=== PATIENT | male | born 1950 | race Two or more races ===

== ENCOUNTER 2020-05-27 10:49 | Emergency (ER) | payer MEDICARE, OTHER ==
[~2020-05-27] VITALS: Ht 167.6 cm; Wt 82.0 kg
[2020-05-27] MEDS ORDERED: [UNRECOGNIZED DRUG - CODE] PO (10:57)
[2020-05-27] MEDS ORDERED: MONT-35 PO (10:57)
[2020-05-27] MEDS ORDERED: [UNRECOGNIZED DRUG - REMARK] PO (10:57)
[2020-05-27] MEDS ORDERED: MORPHINE SULFATE 4 MG/ML SYRINGE IVP ONE (12:00)
[2020-05-27] MEDS ORDERED: SODIUM CHLORIDE 0.9% 1,000 ML IV ONE (12:00)
[2020-05-27] MEDS ORDERED: ONDANSETRON HCL 4 MG/2 ML VIAL IVP ONE (12:00)
[2020-05-27 12:23] LABS: BASOPHILS % (AUTO) 0.4 % (0.0-2.0); EOSINOPHILS % (AUTO) 5.5 % (1.0-6.0); HEMATOCRIT 42.7 % (41-53); HEMOGLOBIN 14.3 g/dL (13.5-17.5); LYMPHOCYTES # (AUTO) 3.4 K/uL (1.0-4.8); LYMPHOCYTES % (AUTO) 37.1 % (22.0-44.0); MEAN CORPUSCULAR HEMOGLOBIN 29.7 pg (26.0-34.0); MEAN CORPUSCULAR HGB CONC 33.5 G/dL (31.0-37.0); MEAN CORPUSCULAR VOLUME 89 fL (80-100); MONOCYTES # (AUTO) 0.7 K/uL (0.1-1.0); MONOCYTES % (AUTO) 7.7 % (2.0-9.0); NEUTROPHILS # (AUTO) 4.5 K/uL (1.8-7.7); NEUTROPHILS % (AUTO) 49.3 % (40.0-70.0); PLATELET COUNT (AUTO) 154 K/uL (150-450); RED BLOOD CELL COUNT(AUTO) 4.82 MIL/uL (4.50-5.90); RED CELL DISTRIBUTION WIDTH 13.6 % (11.5-14.5)
[2020-05-27 12:33] LABS: ANION GAP 3 mmol/L (8-16); CALCIUM, TOTAL 9.2 mg/dL (8.8-10.5); CARBON DIOXIDE 32 mmol/L (22-29); CHLORIDE 101 mmol/L (98-107); CREATININE 0.93 mg/dL (0.60-1.30); GLOMERULAR FILTR. RATE CALC > 60 mL/min (>60); GLUCOSE,RANDOM 97 mg/dL (70-110); POTASSIUM 4.3 mmol/L (3.5-5.1); SODIUM SERUM 136 mmol/L (136-145); UREA NITROGEN, BLOOD 14 mg/dL (7-18)
[2020-05-27 12:43] LABS: ALANINE AMINOTRANSFERASE 21 U/L (12-78); ALBUMIN 3.8 g/dL (3.4-5.0); ALKALINE PHOSPHATASE 63 U/L (46-116); ASPARTATE AMINOTRANSFERASE 13 U/L (15-37); BILIRUBIN,TOTAL 0.5 mg/dL (0.1-1.0); LIPASE 164 U/L (73-393)
[2020-05-27] MEDS ORDERED: SODIUM CHLORIDE 0.9% 100 ML ONE (13:23)
[2020-05-27] MEDS ORDERED: IOVERSOL 320 MG/ML 100 ML VIAL ONE (13:23)
[2020-05-27 14:03] VITALS: BP 139/79
== END 2020-05-27 15:37 | disposition home or self-care (01) ==
LOC: EMS 10:58
DX: R10.31 Right lower quadrant pain (principal); J45.909 Unspecified asthma, uncomplicated
CPT/HCPCS: 36415; 74177; 80053; 83690; 85025; 96361; 96374; 96375; 99285; J2270; J2405; J7030; J7050; Q9967

== ENCOUNTER 2022-05-03 09:52 | Inpatient (IN) | payer MEDICARE, OTHER ==
[~2022-05-03] VITALS: Ht 167.6 cm; Wt 87.2 kg
[~2022-05-03 09:52] MED LIST: MONT-35 PO; [UNRECOGNIZED DRUG - CODE] PO
[2022-05-03] MEDS ORDERED: 0.9% SODIUM CHLORIDE 10 ML SYRINGE IVP PRN (10:00)
[2022-05-03] MEDS ORDERED: ACETAMINOPHEN 1000 MG/ISO-OSM 100 ML IV ONE (10:00)
[2022-05-03 10:34] LABS: BASOPHILS % (AUTO) 0.1 % (0.0-2.0); EOSINOPHILS % (AUTO) 0.8 % (1.0-6.0); HEMATOCRIT 41.6 % (41-53); HEMOGLOBIN 13.7 g/dL (13.5-17.5); LYMPHOCYTES # (AUTO) 0.9 K/uL (1.0-4.8); LYMPHOCYTES % (AUTO) 6.1 % (22.0-44.0); MEAN CORPUSCULAR HEMOGLOBIN 28.7 pg (26.0-34.0); MEAN CORPUSCULAR HGB CONC 33.1 G/dL (31.0-37.0); MEAN CORPUSCULAR VOLUME 87 fL (80-100); MONOCYTES # (AUTO) 0.3 K/uL (0.1-1.0); MONOCYTES % (AUTO) 1.9 % (2.0-9.0); PLATELET COUNT (AUTO) 148 K/uL (150-450); RED BLOOD CELL COUNT(AUTO) 4.78 MIL/uL (4.50-5.90); RED CELL DISTRIBUTION WIDTH 13.8 % (11.5-14.5)
[2022-05-03 10:36] LABS: COVID AG,FIA SOURCE NASAL SWAB
[2022-05-03 10:45] LABS: ANION GAP 7 mmol/L (8-16); CALCIUM, TOTAL 8.7 mg/dL (8.8-10.5); CARBON DIOXIDE 26 mmol/L (22-29); CHLORIDE 101 mmol/L (98-107); CREATININE 0.97 mg/dL (0.60-1.30); GLUCOSE,RANDOM 117 mg/dL (70-110); POTASSIUM 3.7 mmol/L (3.5-5.1); SODIUM SERUM 134 mmol/L (136-145); UREA NITROGEN, BLOOD 15 mg/dL (7-18)
[2022-05-03] MEDS ORDERED: SODIUM CHLORIDE 0.9% 2,750 ML IV ONE (10:45)
[2022-05-03 10:48] LABS: D-DIMER 1.82 mg/L FEU (0.00-0.50); INR 1.1 (0.9-1.1); PROTHROMBIN TIME 11.8 SEC (9.4-11.6)
[2022-05-03 10:50] LABS: GLOMERULAR FILTR. RATE CALC > 60 mL/min (>60)
[2022-05-03 10:51] LABS: ALANINE AMINOTRANSFERASE 22 U/L (12-78); ALBUMIN 3.6 g/dL (3.4-5.0); ALKALINE PHOSPHATASE 66 U/L (46-116); ASPARTATE AMINOTRANSFERASE 15 U/L (15-37); BILIRUBIN,TOTAL 0.5 mg/dL (0.1-1.0); CREATINE KINASE, TOTAL ONLY 21 U/L (39-308); TOTAL PROTEIN, SERUM 6.5 g/dL (6.4-8.2)
[2022-05-03 10:52] LABS: B-TYPE NATRIURETIC PEPTIDE < 5 pg/mL (0-100)
[2022-05-03 10:55] LABS: LACTIC ACID 3.6 mmol/L (0.4-2.0)
[2022-05-03] MEDS ORDERED: AZITHROMYCIN 500 MG/NS 250 ML IV ONE (11:00)
[2022-05-03] MEDS ORDERED: CefTRIAXone 1 GM/DEXTROSE 50 ML IV ONE (11:00)
[2022-05-03 11:01] LABS: NEUTROPHILS % (AUTO) 91.1 % (40.0-70.0)
[2022-05-03 11:04] LABS: INFLUENZA TYPE A NEGATIVE FOR TYPE A (NEGATIVE); INFLUENZA TYPE B NEGATIVE FOR TYPE B (NEGATIVE)
[2022-05-03] MEDS ORDERED: IPRATROPIUM BROMIDE 0.5 MG/2.5 ML NEB SOLUTION NEB ONE (11:15)
[2022-05-03] MEDS ORDERED: ALBUTEROL SULFATE 5 MG/ML 20 ML NEB SOLN [BULK] NEB ONE (11:15)
[2022-05-03 11:32] LABS: ABG BASE EXCESS 1.7 mmol/L (-2.0-3.0); ABG CARBOXYHEMOGLOBIN 2.7 % (0.0-1.5); ABG HCO3 25.8 mmol/L (22.0-26.0); ABG METHEMOGLOBIN 0.1 % (0.0-1.5); ABG OXYGEN CONTENT 18.1 mL/dL (15.0-23.0); ABG OXYGEN SATURATION 97.9 % (95.0-98.0); ABG OXYHEMOGLOBIN 95.2 % (94.0-100.0); ABG PCO2 46 mmHg (35-45); ABG PH 7.384 (7.35-7.450); ABG TOTAL HEMOGLOBIN 13.4 G/dL (12.0-18.0); PO2, ARTERIAL BG 116.9 mmHg (75.0-83.0); SITE, BLOOD GAS LFT BRACHIAL; SOURCE, BLOOD GAS ARTERIAL
[2022-05-03 11:33] LABS: O2 DEVICE,BLOOD GAS NC (ROOM AIR)
[2022-05-03 12:30] LABS: APPEARANCE,URINE CLEAR (CLEAR); BILIRUBIN,URINE NEGATIVE (NEGATIVE); GLUCOSE, URINE (UA) NEGATIVE (NEGATIVE); KETONES,URINE NEGATIVE (NEGATIVE); LEUKOCYTE ESTERASE ,URINE NEGATIVE (NEGATIVE); NITRATE,URINE NEGATIVE (NEGATIVE); OCCULT BLOOD,URINE NEGATIVE (NEGATIVE); PROTEIN,URINE NEGATIVE (NEGATIVE); SPECIFIC GRAVITIY, URINE 1.006 (1.003-1.030); UROBILINOGEN,URINE <=1.0 mg/dL (<=1.0)
[2022-05-03] MEDS ORDERED: SODIUM CHLORIDE 0.9% 1,000 ML IV ONE (13:15)
[2022-05-03] MEDS ORDERED: OxyCODONE HCL/ACETAMINOPHEN 5-325 MG TABLET PO PRN (13:15)
[2022-05-03] MEDS ORDERED: HYDROCORTISONE 2.5% 30 GM CREAM TP PRN (13:15)
[2022-05-03] MEDS ORDERED: ACETAMINOPHEN 325 MG TABLET PO PRN (13:15)
[2022-05-03] MEDS ORDERED: ZOLPIDEM TARTRATE 5 MG TABLET PO PRN (13:15)
[2022-05-03] MEDS ORDERED: ONDANSETRON HCL 4 MG/2 ML VIAL IVP PRN (13:15)
[2022-05-03 14:37] VITALS: BP 101/52
[2022-05-03 16:11] VITALS: BP 105/68
[2022-05-03] MEDS: MethylPREDNISolone SOD SUCC 125 MG/2 ML VIAL IVP SCH ×2 (17:12→23:46)
[2022-05-03] MEDS: HEPARIN SODIUM,PORCINE 5,000 UNITS/ML VIAL SQ SCH ×2 (17:12→23:45)
[2022-05-03 18:01] LABS: GLUCOMETER DEV NAME(LOC) 5N.1C; GLUCOSE,POINT OF CARE 117 MG/DL (70-110)
[2022-05-03 20:45] VITALS: BP 111/72
[2022-05-03] MEDS: DOCUSATE SODIUM 100 MG CAPSULE PO SCH (21:07)
[2022-05-03] MEDS: ALBUTEROL SULFATE 2.5 MG/0.5 ML NEB SOLUTION NEB PRN (21:40)
[2022-05-04] VITALS (7 sets, daily range): BP systolic 108–144; BP diastolic 55–90
[2022-05-04] MEDS: HEPARIN SODIUM,PORCINE 5,000 UNITS/ML VIAL SQ SCH ×3 (08:00→23:33)
[2022-05-04] MEDS: MethylPREDNISolone SOD SUCC 125 MG/2 ML VIAL IVP SCH ×3 (08:29→23:33)
[2022-05-04] MEDS: FAMOTIDINE 20 MG TABLET PO SCH (08:30)
[2022-05-04] MEDS: DOCUSATE SODIUM 100 MG CAPSULE PO SCH ×3 (08:30→23:41)
[2022-05-04] MEDS ORDERED: 0.9% SODIUM CHLORIDE 5 ML NEB SOLUTION NEB ONE ×2 (09:51→23:48)
[2022-05-04] MEDS ORDERED: IOHEXOL 350 MG/ML 100 ML VIAL ONE (09:55)
[2022-05-04] MEDS ORDERED: SODIUM CHLORIDE 0.9% 100 ML ONE (09:55)
[2022-05-04] MEDS: ALBUTEROL SULFATE 2.5 MG/0.5 ML NEB SOLUTION NEB PRN ×2 (09:55→23:55)
[2022-05-04] MEDS ORDERED: SODIUM CHLORIDE 0.9% 1,000 ML IV ONE (10:00)
[2022-05-04] MEDS: AZITHROMYCIN 500 MG/NS 250 ML IV SCH (10:34)
[2022-05-04] MEDS: CefTRIAXone 1 GM/DEXTROSE 50 ML IV SCH (12:47)
[2022-05-05] MEDS: GuaiFENesin SR 600 MG ER TABLET PO SCH ×3 (00:04→20:52)
[2022-05-05 04:31] VITALS: BP 124/76
[2022-05-05 06:24] LABS: EOSINOPHILS % (AUTO) 0 % (1.0-6.0); HEMATOCRIT 37.6 % (41-53); HEMOGLOBIN 12.3 g/dL (13.5-17.5); LYMPHOCYTES # (AUTO) 1.6 K/uL (1.0-4.8); LYMPHOCYTES % (AUTO) 7.5 % (22.0-44.0); MEAN CORPUSCULAR HEMOGLOBIN 28.4 pg (26.0-34.0); MEAN CORPUSCULAR HGB CONC 32.8 G/dL (31.0-37.0); MEAN CORPUSCULAR VOLUME 87 fL (80-100); MONOCYTES # (AUTO) 0.7 K/uL (0.1-1.0); MONOCYTES % (AUTO) 3.5 % (2.0-9.0); NEUTROPHILS # (AUTO) 18.6 K/uL (1.8-7.7); PLATELET COUNT (AUTO) 153 K/uL (150-450); RED BLOOD CELL COUNT(AUTO) 4.33 MIL/uL (4.50-5.90); RED CELL DISTRIBUTION WIDTH 14.5 % (11.5-14.5)
[2022-05-05 06:51] LABS: ANION GAP 10 mmol/L (8-16); CALCIUM, TOTAL 8.8 mg/dL (8.8-10.5); CARBON DIOXIDE 25 mmol/L (22-29); CHLORIDE 106 mmol/L (98-107); CREATININE 0.76 mg/dL (0.60-1.30); GLUCOSE,RANDOM 157 mg/dL (70-110); POTASSIUM 3.9 mmol/L (3.5-5.1); SODIUM SERUM 141 mmol/L (136-145); UREA NITROGEN, BLOOD 16 mg/dL (7-18)
[2022-05-05 06:52] LABS: GLOMERULAR FILTR. RATE CALC > 60 mL/min (>60)
[2022-05-05 07:46] VITALS: BP 119/70
[2022-05-05] MEDS: MethylPREDNISolone SOD SUCC 125 MG/2 ML VIAL IVP SCH ×2 (08:19→16:25)
[2022-05-05] MEDS: HEPARIN SODIUM,PORCINE 5,000 UNITS/ML VIAL SQ SCH ×2 (08:19→16:25)
[2022-05-05] MEDS: DOCUSATE SODIUM 100 MG CAPSULE PO SCH ×2 (08:19→20:52)
[2022-05-05] MEDS: FAMOTIDINE 20 MG TABLET PO SCH (08:19)
[2022-05-05 11:02] VITALS: BP 123/69
[2022-05-05] MEDS ORDERED: SODIUM CHLORIDE 0.9% 500 ML IV ONE (12:35)
[2022-05-05] MEDS: CefTRIAXone 1 GM/DEXTROSE 50 ML IV SCH (12:38)
[2022-05-05] MEDS: AZITHROMYCIN 500 MG/NS 250 ML IV SCH (13:16)
[2022-05-05 15:03] VITALS: BP 140/79
[2022-05-05 19:30] VITALS: BP 133/79
[2022-05-05 23:35] VITALS: BP 128/76
[2022-05-06] MEDS: HEPARIN SODIUM,PORCINE 5,000 UNITS/ML VIAL SQ SCH ×3 (00:32→16:41)
[2022-05-06] MEDS: MethylPREDNISolone SOD SUCC 125 MG/2 ML VIAL IVP SCH ×2 (00:32→07:59)
[2022-05-06] MEDS ORDERED: 0.9% SODIUM CHLORIDE 5 ML NEB SOLUTION NEB ONE ×3 (00:52→15:43)
[2022-05-06] MEDS: ALBUTEROL SULFATE 2.5 MG/0.5 ML NEB SOLUTION NEB PRN ×3 (00:53→16:00)
[2022-05-06 04:49] VITALS: BP 129/72
[2022-05-06 07:15] VITALS: BP 143/86
[2022-05-06] MEDS: FAMOTIDINE 20 MG TABLET PO SCH (07:59)
[2022-05-06] MEDS: GuaiFENesin SR 600 MG ER TABLET PO SCH ×2 (07:59→20:41)
[2022-05-06] MEDS: DOCUSATE SODIUM 100 MG CAPSULE PO SCH ×2 (08:00→20:41)
[2022-05-06] MEDS: CefTRIAXone 1 GM/DEXTROSE 50 ML IV SCH (10:54)
[2022-05-06] MEDS: PredniSONE 20 MG TABLET PO SCH (10:55)
[2022-05-06 11:00] VITALS: BP 131/78
[2022-05-06] MEDS: AZITHROMYCIN 500 MG/NS 250 ML IV SCH (13:03)
[2022-05-06 15:18] VITALS: BP 146/92
[2022-05-06 15:53] LABS: ABG BASE EXCESS 3.5 mmol/L (-2.0-3.0); ABG CARBOXYHEMOGLOBIN 0.4 % (0.0-1.5); ABG HCO3 27.2 mmol/L (22.0-26.0); ABG METHEMOGLOBIN 0.2 % (0.0-1.5); ABG OXYGEN CONTENT 18.7 mL/dL (15.0-23.0); ABG OXYGEN SATURATION 94.4 % (95.0-98.0); ABG OXYHEMOGLOBIN 93.8 % (94.0-100.0); ABG PCO2 41 mmHg (35-45); ABG PH 7.441 (7.35-7.450); ABG TOTAL HEMOGLOBIN 14.2 G/dL (12.0-18.0); PO2, ARTERIAL BG 70.6 mmHg (75.0-83.0); SOURCE, BLOOD GAS ARTERIAL; TEMPERATURE, FAHRENHEIT, BG 98.4 FAHREN (96.0-98.6)
[2022-05-06 15:54] LABS: SITE, BLOOD GAS LFT RADIAL
[2022-05-06 15:55] LABS: ABG A-A DIFF O2 29.6 mmHg (10-20.0); O2 DEVICE,BLOOD GAS ROOM AIR (ROOM AIR)
[2022-05-06 19:57] VITALS: BP 138/75
[2022-05-06 23:45] VITALS: BP 137/85
[2022-05-06 23:47] LABS: GLUCOMETER DEV NAME(LOC) 5N.1C; GLUCOSE,POINT OF CARE 125 MG/DL (70-110)
[2022-05-07] MEDS: HEPARIN SODIUM,PORCINE 5,000 UNITS/ML VIAL SQ SCH ×4 (00:03→23:46)
[2022-05-07] MEDS ORDERED: 0.9% SODIUM CHLORIDE 5 ML NEB SOLUTION NEB ONE ×2 (00:07→12:21)
[2022-05-07 04:55] VITALS: BP 135/79
[2022-05-07 07:54] VITALS: BP 154/92
[2022-05-07] MEDS: FAMOTIDINE 20 MG TABLET PO SCH (08:58)
[2022-05-07] MEDS: DOCUSATE SODIUM 100 MG CAPSULE PO SCH ×2 (08:58→20:19)
[2022-05-07] MEDS: PredniSONE 20 MG TABLET PO SCH (08:58)
[2022-05-07] MEDS: GuaiFENesin SR 600 MG ER TABLET PO SCH ×2 (08:59→20:19)
[2022-05-07 12:10] VITALS: BP 122/85
[2022-05-07] MEDS: CefTRIAXone 1 GM/DEXTROSE 50 ML IV SCH (12:14)
[2022-05-07] MEDS: ALBUTEROL SULFATE 2.5 MG/0.5 ML NEB SOLUTION NEB PRN (12:23)
[2022-05-07 15:34] VITALS: BP 140/75
[2022-05-07] MEDS: AZITHROMYCIN 500 MG/NS 250 ML IV SCH (16:24)
[2022-05-07] MEDS ORDERED: CETIRIZINE HCL 10 MG TABLET PO PRN (17:45)
[2022-05-07 21:05] VITALS: BP 122/74
[2022-05-08 00:10] VITALS: BP 128/74
[2022-05-08 04:30] VITALS: BP 113/74
[2022-05-08 07:42] VITALS: BP 124/79
[2022-05-08] MEDS: DOCUSATE SODIUM 100 MG CAPSULE PO SCH (08:17)
[2022-05-08] MEDS: HEPARIN SODIUM,PORCINE 5,000 UNITS/ML VIAL SQ SCH ×2 (08:18→15:54)
[2022-05-08] MEDS: PredniSONE 20 MG TABLET PO SCH (08:18)
[2022-05-08] MEDS: GuaiFENesin SR 600 MG ER TABLET PO SCH (08:18)
[2022-05-08] MEDS: FAMOTIDINE 20 MG TABLET PO SCH (08:18)
[2022-05-08] MEDS ORDERED: FLUT1AER IH (09:38)
[2022-05-08] MEDS ORDERED: ALBU8HFA IH (09:38)
[2022-05-08] MEDS ORDERED: PRED-554 PO (09:38)
[2022-05-08] MEDS ORDERED: PRED-549 PO (09:38)
[2022-05-08 11:43] VITALS: BP 127/74
[2022-05-08] MEDS: AZITHROMYCIN 500 MG/NS 250 ML IV SCH (13:20)
[2022-05-08] MEDS: CefTRIAXone 1 GM/DEXTROSE 50 ML IV SCH (13:20)
== END 2022-05-08 16:00 | disposition home or self-care (01) | DRG 871 ==
LOC: EMS 09:52 → 5S 13:23
PROVIDERS: ADMIT Internal Medicine; ATTEND Internal Medicine
DX: A41.9 Sepsis, unspecified organism (principal); J96.01 Acute respiratory failure with hypoxia; J96.02 Acute respiratory failure with hypercapnia; E87.20 Acidosis, unspecified; J45.901 Unspecified asthma with (acute) exacerbation; J68.0 Bronchitis and pneumonitis due to chemicals, gases, fumes and vapors; F17.210 Nicotine dependence, cigarettes, uncomplicated; K64.4 Residual hemorrhoidal skin tags; Z20.822 Contact with and (suspected) exposure to COVID-19; R79.89 Other specified abnormal findings of blood chemistry; T65.891A Toxic effect of other specified substances, accidental (unintentional), initial encounter; Y92.89 Other specified places as the place of occurrence of the external cause; Z79.899 Other long term (current) drug therapy
CPT/HCPCS: 36600; 71045; 71250; 71275; 80048; 80053; 81003; 82550; 82805; 82962; 83605; 83880; 84145; 84484; 85025; 85379; 85610; 85730; 87040; 87804; 93005; 94640; 94644; 99285; J0131; J0456; J0696; J1644; J2930; J7030; J7040; J7050; Q9967; 36415-L1; 36415-TC; J7613

== ENCOUNTER 2025-06-05 23:54 | Emergency (ER) | payer MEDICARE, MEDICAID ==
[~2025-06-05] VITALS: Ht 170.2 cm; Wt 72.0 kg
[2025-06-05 00:02] VITALS: PULSE 81; RESP 29; O2SAT 100
[~2025-06-05 23:54] MED LIST changes: +ALBU18HF12 IH; +FLUT1AER IH; +PRED-549 PO; +PRED-554 PO
[2025-06-05 23:55] VITALS: PULSE 88; RESP 32; O2SAT 100
[2025-06-05 23:59] VITALS: TEMP 99
[2025-06-06 00:02] VITALS: PULSE 81; RESP 29; O2SAT 100
[2025-06-06 00:19] LABS: COVID AG,FIA SOURCE NASAL SWAB
[2025-06-06 00:22] LABS: PLATELET COUNT (AUTO) 132 K/uL (150-450); RED BLOOD CELL COUNT(AUTO) 5.03 MIL/uL (4.50-5.90); RED CELL DISTRIBUTION WIDTH 14.5 % (11.5-14.5); WHITE BLOOD COUNT (AUTO) 8.3 K/uL (4.5-11.0)
[2025-06-06 00:24] VITALS: PULSE 81; RESP 24; O2SAT 100
[2025-06-06] MEDS: IPRATROPIUM BROMIDE 0.5 MG/2.5 ML NEB SOLUTION NEB ONE ×2 (00:24→01:23)
[2025-06-06] MEDS: ALBUTEROL SULFATE 2.5 MG/0.5 ML NEB SOLUTION NEB ONE (00:24)
[2025-06-06 00:36] LABS: CALCIUM, TOTAL 8.8 mg/dL (8.8-10.5); CREATININE 0.94 mg/dL (0.60-1.30); GLOMERULAR FILTR. RATE CALC > 60 mL/min (>60); GLUCOSE,RANDOM 102 mg/dL (70-110); INFLUENZA TYPE A NEGATIVE FOR TYPE A (NEGATIVE); INFLUENZA TYPE B NEGATIVE FOR TYPE B (NEGATIVE); SARS-COV2 (COVID) ANTIGEN,FIA Negative (Negative); SODIUM SERUM 134 mmol/L (136-145); UREA NITROGEN, BLOOD 13 mg/dL (7-18)
[2025-06-06 00:43] LABS: TROPONIN I-HIGH SENSITIVITY 4 ng/L (<76)
[2025-06-06 00:44] VITALS: PULSE 94; RESP 22; O2SAT 100
[2025-06-06] MEDS ORDERED: 0.9% SODIUM CHLORIDE 15 ML NEB SOLUTION NEB ONE (01:20)
[2025-06-06] MEDS: DOXYCYCLINE HYCLATE 100 MG TABLET PO ONE (01:23)
[2025-06-06] MEDS: ALBUTEROL SULFATE 2.5 MG/0.5 ML 5 ML NEB SOLUTION NEB ONE (01:23)
[2025-06-06 01:25] VITALS: PULSE 88; RESP 22; O2SAT 100
[2025-06-06 02:00] VITALS: BP 127/73; O2SAT 100
[2025-06-06 02:18] VITALS: PULSE 91; RESP 20; O2SAT 100
[2025-06-06] MEDS ORDERED: PRED-554 PO (03:09)
[2025-06-06] MEDS ORDERED: DOXY-354 PO (03:09)
[2025-06-06] MEDS ORDERED: ALBU18HF12 IH (03:25)
== END 2025-06-06 03:37 | disposition home or self-care (01) ==
LOC: EDUNIT# 23:54 → EMS 23:56
DX: J44.1 Chronic obstructive pulmonary disease with (acute) exacerbation (principal); J11.1 Influenza due to unidentified influenza virus with other respiratory manifestations; Z79.51 Long term (current) use of inhaled steroids; Z79.52 Long term (current) use of systemic steroids; Z79.899 Other long term (current) drug therapy; Z20.822 Contact with and (suspected) exposure to COVID-19
CPT/HCPCS: 99291; 71045; 87426; 80048; 83880; 84484; 85025; 87040; 87804; 36415; 93005; 84145; 96374; 82962; 94644; J2919; 94640; 94660; J7613